=== PATIENT | female | born 1960 | race Caucasian/White ===

== ENCOUNTER 2024-12-25 22:13 | Emergency (ER) | payer BC ==
[2024-12-25] MEDS: Lidocaine 1% 20 ML MDV ONE (22:30)
[2024-12-25] MEDS: Amoxicillin/Clavulanate K 875-125 MG Tab PO ONE (22:59)
[2024-12-25] MEDS: Diphtheria,Pertussis(Acell),Tetanus Vaccine 0.5 ML Syringe IM ONE (22:59)
== END 2024-12-25 23:14 | disposition home or self-care (01) ==
LOC: JD.ED 22:13
DX: S61.552A Open bite of left wrist, initial encounter (principal); S61.412A Laceration without foreign body of left hand, initial encounter; Z79.899 Other long term (current) drug therapy; W54.0XXA Bitten by dog, initial encounter; Z23 Encounter for immunization
CPT/HCPCS: 12001; 73130; 90471; 90715; 99283; A9270; 99282; J3490